=== PATIENT | male | born 1940 | race Caucasian/White ===

== ENCOUNTER 2022-07-04 10:25 | Inpatient (IN) ==
[2022-07-04] MEDS ORDERED: ONDANSETRON 4 MG/2 ML VIAL IV STA (10:54)
[2022-07-04] MEDS ORDERED: SODIUM CHLORIDE 0.9% 1,000 ML IV STA ×2 (10:54→12:00)
[2022-07-04 10:58] LABS: Basophils % 0.2 % (0.0-0.8); Hemoglobin 13.2 GM/DL (14.0-18.0); Immature Granulocytes % 0.4 %; Immature Granulocytes Absolute 0.04 #; Lymphocytes # 0.4 10*3/uL (1.4-4.0); Lymphocytes % 3.1 % (21.2-54.2); Mean Platelet Volume 11.2 FL (9.6-12.0); Monocytes # 0.7 10*3/uL (0.11-0.8); Monocytes % 5.8 % (1.7-12.7); Neutrophils % 90.5 % (38.7-73.9); Platelet Count 132 T/CUMM (130-400); Red Blood Count 3.96 MC/CUMM (3.8-5.5); Red Cell Distribution Width 12.7 % (9.3-17.3); White Blood Count 11.4 T/CUMM (4-12)
[2022-07-04 11:15] LABS: Alanine Aminotransferase 34 U/L (16-61); Albumin 3.7 G/DL (3.4-5.0); Alkaline Phosphatase 76 U/L (45-117); Amylase 40 U/L (25-115); Aspartate Amino Transferase 32 U/L (0-37); Blood Urea Nitrogen 21 MG/DL (7-18); Carbon Dioxide 27 MMOL/L (21-32); Chloride 104 MMOL/L (98-107); Glucose 247 MG/DL (74-106); Osmolality,Calculated 287.5 MOS/KG (273-304); Potassium 4.1 MMOL/L (3.5-5.1); Sodium 139 MMOL/L (136-145); Total Protein 6.9 G/DL (6.4-8.2)
[2022-07-04 11:33] LABS: Band Neutrophils 10 % (0-10); Eosinophils 1 % (0-10); Hypochromia Slight; Lymphocytes 7 % (20-55); Total Cells Counted 100
[2022-07-04] MEDS ORDERED: cefTRIAXone 1,000 MG in SODIUM CHLORIDE 0.9% 100 ML IV STA (11:51)
[2022-07-04] MEDS ORDERED: MAGNESIUM SULF RIDER 4 GM/100 ML PREMIX IV PRN (12:42)
[2022-07-04] MEDS ORDERED: MAGNESIUM SULF RIDER 2 GM/50 ML PREMIX IV PRN (12:42)
[2022-07-04] MEDS ORDERED: ACETAMINOPHEN 325 MG TABLET PO PRN (13:06)
[2022-07-04] MEDS ORDERED: DEXTROSE 10% 250 ML BAG IV PRN (13:06)
[2022-07-04] MEDS ORDERED: DEXTROSE 50% 25 GM/50 ML VIAL IV PRN (13:06)
[2022-07-04] MEDS ORDERED: ONDANSETRON 4 MG/2 ML VIAL IV PRN (13:06)
[2022-07-04] MEDS ORDERED: GLUCAGON 1 MG VIAL IM PRN ×2 (13:06)
[2022-07-04] MEDS ORDERED: ENOXAPARIN 30 MG/0.3 ML SYRINGE SUBCUT SCH (13:30)
[2022-07-04] MEDS ORDERED: BENZONATATE 100 MG CAPSULE PO PRN (13:30)
[2022-07-04] MEDS ORDERED: ALBUTEROL/IPRATROPIUM 3 ML NEB RESP TX PRN (13:36)
[2022-07-04] MEDS ORDERED: SODIUM CHLORIDE 0.9% 1,000 ML IV ONE (13:48)
[2022-07-04] MEDS: DOXYCYCLINE HYCLATE INJ 100 MG in SODIUM CHLORIDE 0.9% 100 ML IV SCH (14:01)
[2022-07-04] MEDS: SODIUM CHLORIDE 0.9% 1,000 ML IV SCH ×3 (16:10→17:09)
[2022-07-04 17:26] LABS: Bilirubin,Urine Negative (Negative); Blood, Urine Trace mg/dL (Negative); Glucose,Urine (UA) 100 mg/dL (Negative); Hyaline Casts,Urine 1 /LPF (0-3); Ketones,Urine 15 mg/dL (Negative); Mucus,Urine Occasional /LPF (Occasional); Nitrite,Urine Negative (Negative); Protein,Urine Negative (Negative); RBC,Urine 2 /HPF (0-4); Squamous Epithelial Cell,Urine Occasional /HPF (0-10); Urine Appearance Clear (Clear); Urine Color Yellow (Yellow)
[2022-07-04] MEDS: INSULIN LISPRO 100 UNIT/ML SUBCUT SCH ×2 (21:21→21:26)
[2022-07-04] MEDS: SIMVASTATIN 20 MG TABLET PO SCH (21:26)
[2022-07-05] MEDS: DOXYCYCLINE HYCLATE INJ 100 MG in SODIUM CHLORIDE 0.9% 100 ML IV SCH ×2 (00:55→13:02)
[2022-07-05 06:08] LABS: Albumin 2.6 G/DL (3.4-5.0); Calcium 7.8 MG/DL (8.5-10.1); Osmolality,Calculated 279.4 MOS/KG (273-304); Potassium 3.6 MMOL/L (3.5-5.1); Risk Ratio 1.96; Thyroid Stimulating Hormone 1.09 uIU/ml (0.358-3.74); Total Protein 5.4 G/DL (6.4-8.2)
[2022-07-05 06:45] LABS: Basophils % 0.3 % (0.0-0.8); Eosinophils # 0.1 10*3/uL (0.0-0.87); Eosinophils % 0.7 % (0.00-10.9); Hematocrit 29.8 VOL% (42.0-52.0); Immature Granulocytes % 0.6 %; Immature Granulocytes Absolute 0.06 #; Lymphocytes # 1.3 10*3/uL (1.4-4.0); Lymphocytes % 12.8 % (21.2-54.2); Mean Corpuscular HGB Conc 33.9 GM/DL (32-36); Mean Corpuscular Volume 99.3 FL (87-102); Mean Platelet Volume 11.5 FL (9.6-12.0); Monocytes # 0.7 10*3/uL (0.11-0.8); Monocytes % 7.3 % (1.7-12.7); Neutrophils % 78.3 % (38.7-73.9); Red Cell Distribution Width 13.1 % (9.3-17.3); White Blood Count 9.9 T/CUMM (4-12)
[2022-07-05 06:46] LABS: Hemoglobin 10.1 GM/DL (14.0-18.0); Platelet Count 96 T/CUMM (130-400)
[2022-07-05 07:04] LABS: Eosinophils 2 % (0-10); Hypochromia Slight; Lymphocytes 12 % (20-55); Microcytosis Slight; Platelet Estimate Decreased; Total Cells Counted 100
[2022-07-05] MEDS: SODIUM CHLORIDE 0.9% 1,000 ML IV SCH ×4 (07:05→15:09)
[2022-07-05] MEDS ORDERED: LOSARTAN 25 MG TABLET PO SCH (09:00)
[2022-07-05] MEDS: INSULIN LISPRO 100 UNIT/ML SUBCUT SCH ×4 (09:38→20:25)
[2022-07-05] MEDS: ASPIRIN EC 81 MG TABLET PO SCH (09:48)
[2022-07-05] MEDS: TAMSULOSIN 0.4 MG CAPSULE PO SCH (09:49)
[2022-07-05] MEDS: LOSARTAN 25 MG TABLET PO SCH (09:57)
[2022-07-05] MEDS: cefTRIAXone 1,000 MG in SODIUM CHLORIDE 0.9% 100 ML IV SCH (11:57)
[2022-07-05] MEDS: SIMVASTATIN 20 MG TABLET PO SCH (20:25)
[2022-07-05] MEDS: MAGNESIUM CHLORIDE 64 MG TABLET PO SCH (20:25)
[2022-07-06] MEDS: DOXYCYCLINE HYCLATE INJ 100 MG in SODIUM CHLORIDE 0.9% 100 ML IV SCH (01:00)
[2022-07-06] MEDS: SODIUM CHLORIDE 0.9% 1,000 ML IV SCH ×2 (02:30→16:18)
[2022-07-06 05:18] LABS: Basophils % 0.2 % (0.0-0.8); Eosinophils # 0.1 10*3/uL (0.0-0.87); Eosinophils % 1.1 % (0.00-10.9); Hematocrit 31.6 VOL% (42.0-52.0); Hemoglobin 10.5 GM/DL (14.0-18.0); Immature Granulocytes % 0.5 %; Immature Granulocytes Absolute 0.05 #; Lymphocytes # 1.1 10*3/uL (1.4-4.0); Lymphocytes % 11.3 % (21.2-54.2); Mean Corpuscular HGB Conc 33.2 GM/DL (32-36); Mean Corpuscular Volume 101.9 FL (87-102); Mean Platelet Volume 11.6 FL (9.6-12.0); Monocytes # 0.7 10*3/uL (0.11-0.8); Monocytes % 7.9 % (1.7-12.7); Platelet Count 106 T/CUMM (130-400); Red Cell Distribution Width 12.8 % (9.3-17.3); White Blood Count 9.3 T/CUMM (4-12)
[2022-07-06 05:39] LABS: Calcium 7.9 MG/DL (8.5-10.1); Osmolality,Calculated 277.5 MOS/KG (273-304); Potassium 3.4 MMOL/L (3.5-5.1)
[2022-07-06] MEDS: LOSARTAN 25 MG TABLET PO SCH (08:26)
[2022-07-06] MEDS: TAMSULOSIN 0.4 MG CAPSULE PO SCH (08:26)
[2022-07-06] MEDS: MAGNESIUM CHLORIDE 64 MG TABLET PO SCH ×2 (08:26→21:06)
[2022-07-06] MEDS: cefTRIAXone 1,000 MG in SODIUM CHLORIDE 0.9% 100 ML IV SCH (08:26)
[2022-07-06] MEDS: ASPIRIN EC 81 MG TABLET PO SCH (08:26)
[2022-07-06] MEDS: INSULIN LISPRO 100 UNIT/ML SUBCUT SCH ×4 (08:28→21:06)
[2022-07-06] MEDS: DOXYCYCLINE HYCLATE 100 MG CAPSULE PO SCH ×2 (09:30→21:06)
[2022-07-06] MEDS ORDERED: POTASSIUM CHLORIDE 20 MEQ TABLET PO ONE (10:00)
[2022-07-06] MEDS: VANCOMYCIN INJ 1,500 MG in SODIUM CHLORIDE 0.9% 500 ML IV SCH (11:45)
[2022-07-06] MEDS: SIMVASTATIN 20 MG TABLET PO SCH (21:06)
[2022-07-07] MEDS: VANCOMYCIN INJ 1,500 MG in SODIUM CHLORIDE 0.9% 500 ML IV SCH ×2 (05:19→23:30)
[2022-07-07 05:41] LABS: Basophils % 0.3 % (0.0-0.8); Eosinophils # 0.2 10*3/uL (0.0-0.87); Eosinophils % 2.9 % (0.00-10.9); Hematocrit 30.4 VOL% (42.0-52.0); Hemoglobin 10.2 GM/DL (14.0-18.0); Immature Granulocytes % 0.8 %; Immature Granulocytes Absolute 0.05 #; Lymphocytes % 15.2 % (21.2-54.2); Mean Corpuscular HGB Conc 33.6 GM/DL (32-36); Mean Platelet Volume 11.3 FL (9.6-12.0); Monocytes # 0.7 10*3/uL (0.11-0.8); Monocytes % 10.8 % (1.7-12.7); Platelet Count 118 T/CUMM (130-400); Red Blood Count 3.01 MC/CUMM (3.8-5.5); Red Cell Distribution Width 12.6 % (9.3-17.3); White Blood Count 6.7 T/CUMM (4-12)
[2022-07-07 06:06] LABS: Calcium 8.1 MG/DL (8.5-10.1); Osmolality,Calculated 277.5 MOS/KG (273-304); Potassium 3.6 MMOL/L (3.5-5.1)
[2022-07-07] MEDS: SODIUM CHLORIDE 0.9% 1,000 ML IV SCH ×3 (06:17→23:30)
[2022-07-07] MEDS ORDERED: POTASSIUM CHLORIDE 20 MEQ TABLET PO ONE ×2 (07:08→09:00)
[2022-07-07] MEDS: INSULIN LISPRO 100 UNIT/ML SUBCUT SCH ×5 (08:56→20:59)
[2022-07-07] MEDS: MAGNESIUM CHLORIDE 64 MG TABLET PO SCH ×2 (08:59→20:59)
[2022-07-07] MEDS: LOSARTAN 25 MG TABLET PO SCH (08:59)
[2022-07-07] MEDS: TAMSULOSIN 0.4 MG CAPSULE PO SCH (08:59)
[2022-07-07] MEDS: ASPIRIN EC 81 MG TABLET PO SCH (08:59)
[2022-07-07] MEDS: DOXYCYCLINE HYCLATE 100 MG CAPSULE PO SCH ×2 (08:59→20:59)
[2022-07-07] MEDS: cefTRIAXone 1,000 MG in SODIUM CHLORIDE 0.9% 100 ML IV SCH (09:05)
[2022-07-07] MEDS: SIMVASTATIN 20 MG TABLET PO SCH (20:59)
[2022-07-08 05:17] LABS: Basophils % 0.7 % (0.0-0.8); Eosinophils # 0.3 10*3/uL (0.0-0.87); Eosinophils % 4.7 % (0.00-10.9); Hematocrit 28.1 VOL% (42.0-52.0); Hemoglobin 9.3 GM/DL (14.0-18.0); Immature Granulocytes % 0.9 %; Immature Granulocytes Absolute 0.05 #; Lymphocytes # 0.7 10*3/uL (1.4-4.0); Lymphocytes % 12.7 % (21.2-54.2); Mean Corpuscular HGB Conc 33.1 GM/DL (32-36); Mean Corpuscular Volume 101.4 FL (87-102); Mean Platelet Volume 10.9 FL (9.6-12.0); Monocytes # 0.7 10*3/uL (0.11-0.8); Monocytes % 12.2 % (1.7-12.7); Neutrophils % 68.8 % (38.7-73.9); Platelet Count 113 T/CUMM (130-400); Red Blood Count 2.77 MC/CUMM (3.8-5.5); Red Cell Distribution Width 12.3 % (9.3-17.3); White Blood Count 5.3 T/CUMM (4-12)
[2022-07-08 05:32] LABS: Calcium 8.1 MG/DL (8.5-10.1); Osmolality,Calculated 285.1 MOS/KG (273-304); Potassium 3.9 MMOL/L (3.5-5.1)
[2022-07-08] MEDS: cefTRIAXone 1,000 MG in SODIUM CHLORIDE 0.9% 100 ML IV SCH (08:15)
[2022-07-08] MEDS: INSULIN LISPRO 100 UNIT/ML SUBCUT SCH (08:15)
[2022-07-08] MEDS: DOXYCYCLINE HYCLATE 100 MG CAPSULE PO SCH (08:15)
[2022-07-08] MEDS: TAMSULOSIN 0.4 MG CAPSULE PO SCH (08:15)
[2022-07-08] MEDS: MAGNESIUM CHLORIDE 64 MG TABLET PO SCH (08:15)
[2022-07-08] MEDS: LOSARTAN 25 MG TABLET PO SCH (08:15)
[2022-07-08] MEDS: ASPIRIN EC 81 MG TABLET PO SCH (08:15)
[2022-07-08] MEDS: SODIUM CHLORIDE 0.9% 1,000 ML IV SCH (08:16)
[2022-07-08 12:00] VITALS: BP 116/92
[2022-07-09] MEDS ORDERED: LEVOFLOXACIN 750 MG TABLET PO SCH (09:00)
== END 2022-07-08 12:20 | disposition home or self-care (01) | DRG 194 ==
LOC: N.ED 10:25 → SUATTDRO 13:06 → N.EDINP 13:06 → N.5E 14:48
PROVIDERS: ADMIT Internal Medicine; ATTEND Hospitalist